=== PATIENT | male | born 1980 | race Caucasian/White ===

== ENCOUNTER → 2020-10-02 10:47 | Outpatient (BNVA) | payer SELFPAY | PROVIDERS: PCP Family Medicine; Visit Provider Emergency Medicine | DX: R05 Cough (principal); F17.200 Nicotine dependence, unspecified, uncomplicated; J40 Bronchitis, not specified as acute or chronic | CPT/HCPCS: 71046 ==

== ENCOUNTER → 2020-10-30 10:34 | Outpatient (BNVA) | payer SELFPAY | PROVIDERS: PCP Family Medicine; Visit Provider Emergency Medicine | DX: E16.2 Hypoglycemia, unspecified (principal); R53.83 Other fatigue | CPT/HCPCS: 80053; 80061; 83036; 84443; 85025 ==

== ENCOUNTER 2021-09-06 16:41 | Emergency (ER) | payer SELFPAY ==
[2021-09-06 17:44] VITALS: BP 128/87; PULSE 91; RESP 18; TEMP 36.9; O2SAT 99; BMI 35.4
--- NOTE | 2021-09-06 18:54 | W.ED.ALLEREA ---
Documented by User: JOSH Alonso 09/06/21 19:20 HPI - Allergic Reaction General: Chief complaint: Allergic Reaction Stated complaint: skin itching x 2 weeks; n/v/d Time Seen by Provider: 09/06/21 18:54 History of Present Illness: HPI narrative: 41-year-old male comes in today with complaints of generalized itching. Patient reports itching has been going on for about 1 week. Patient reports no new changes in detergent, or significant rash. Patient does work in the [employer] and has a lot of sawdust on them at times. Patient appears well. Patient appears no acute distress. Review of Systems Skin/Breast: Reports: pruritus PFSH ED PFSH: Medical History Hypoglycemia Smoking addiction Social History (Updated 10/30/20 @ 10:09 by Aaron Fournier LPN) Smoking and tobacco status: current every day smoker cigarettes Packs smoked per day: 1 Quit status (tobacco): not considering quitting Second hand smoke exposure: Yes Alcohol intake: current Alcohol intake frequency: holidays/special occasions only Desire information about alcohol rehabilitation?: No Physical Exam Const: COMMON NORMALS: alert Resp: COMMON NORMALS: normal respiratory effort Cardio: COMMON NORMALS: regular rate and regular rhythm RATE: regular rate RHYTHM: regular rhythm Extremity: COMMON NORMALS: normal to inspection Neuro: SENSORIUM/ORIENTATION: Yes alert Psych: COMMON NORMALS: cooperative Skin: COMMON NORMALS: no rashes or lesions noted GENERAL SKIN EXAM: no rashes or lesions noted Course Vital Signs: Vital signs: Vital Signs Temperature 98.5 F 09/06/21 17:44 Pulse Rate 96 09/06/21 19:19 Respiratory Rate 16 09/06/21 19:19 Blood Pressure 136/88 09/06/21 19:19 Pulse Oximetry 98 09/06/21 19:19 MDM - Allergic Reaction Medical Decision Making 41-year-old male comes in today with complaints of generalized itching causing difficulty for him to sleep. 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 On exam we note no specific rash. Patient does have some abrasions to the forearm where he has been scratching. Respirations are even lungs are clear to auscultation. Vital signs are normal. Differential diagnosis includes contact dermatitis, neurodermatitis, Chen itch. I believe patient probably is just suffering from some chen itch. He does not usually work in the cold and is outside often. Patient skin does appear to be dry there is no specific rashes noted though. We will give him a burst of steroids to see if that would help and cover for any secondary dermatitis. Patient was recommended to take cetirizine twice a day and use a good emollient lotion. Patient was written for some hydroxyzine for breakthrough itching and Lac-Hydrin for further comfort. Discharge Plan Discharge Patient Disposition: Home Clinical Impression: Winter itch Condition: Stable Prescriptions: New prednisone 20 mg tablet 20 mg PO BID 5 Days Qty: 10 0RF cetirizine 10 mg tablet 10 mg PO BID Qty: 20 0RF Lac-Hydrin Five 5 % lotion 1 applic topical BID Qty: 226 0RF hydroxyzine HCl 25 mg tablet 25 mg PO Q4H PRN (Reason: itching) Qty: 20 0RF Discharge Orders: Discharge ED (Routine); Ordered 09/06/21 Ordered By: Maksim Mai Referrals: Chelsea Ruano DO [Primary Care Provider] - Discharge Diet: Usual diet Discharge Activity: Increase activity as tolerated Patient Instructions: Itchy Skin (ED) Activity Restrictions/Additional Instructions: Medications as directed. I suspect this is probably most likely a winter itch sometimes the cold weather will bring on dry patchy skin that will be itchy. Sometimes Benadryl would be helpful with the itch. Other treatment is avoiding hot water baths, and using a good emollient lotion. I have prescribed you a dose of steroid to cover for any secondary dermatitis from exposure to sawdust or plant material. Drink plenty of water with medication and follow-up with primary care otherwise as needed. Coding Level of Care Code ED Blister Packing Machine Tender for Chg Fwd Exam Detailed Medical Decision Making Low Complexity Time Spent (min) 20 Documented by User: Rafael Martinez DO 09/06/21 19:41 HPI - Allergic Reaction General: Chief complaint: Allergic Reaction Stated complaint: skin itching x 2 weeks; n/v/d Time Seen by Provider: 09/06/21 18:54 [facility] ED [facility]: Medical History Hypoglycemia Smoking addiction Social History (Updated 10/30/20 @ 10:09 by Aaron Fournier LPN) Smoking and tobacco status: current every day smoker cigarettes Packs smoked per day: 1 Quit status (tobacco): not considering quitting Second hand smoke exposure: Yes Alcohol intake: current Alcohol intake frequency: holidays/special occasions only Desire information about alcohol rehabilitation?: No Course Vital Signs: Vital signs: Vital Signs Temperature 98.5 F 09/06/21 17:44 Pulse Rate 96 09/06/21 19:19 Respiratory Rate 16 09/06/21 19:19 Blood Pressure 136/88 09/06/21 19:19 Pulse Oximetry 98 09/06/21 19:19 MDM - Allergic Reaction Medical Decision Making 41-year-old male comes in today with complaints of generalized itching causing difficulty for him to sleep. 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 On exam we note no specific rash. Patient does have some abrasions to the forearm where he has been scratching. Respirations are even lungs are clear to auscultation. Vital signs are normal. Differential diagnosis includes contact dermatitis, neurodermatitis, Chen itch. I believe patient probably is just suffering from some chen itch. He does not usually work in the cold and is outside often. Patient skin does appear to be dry there is no specific rashes noted though. We will give him a burst of steroids to see if that would help and cover for any secondary dermatitis. Patient was recommended to take cetirizine twice a day and use a good emollient lotion. Patient was written for some hydroxyzine for breakthrough itching and Lac-Hydrin for further comfort. This patient was originally seen by JOSH Ritchie.? I agree with his history, evaluation, and treatment. Discharge Plan Discharge Patient Disposition: Home Clinical Impression: Winter itch Condition: Stable Prescriptions: New prednisone 20 mg tablet 20 mg PO BID 5 Days Qty: 10 0RF cetirizine 10 mg tablet 10 mg PO BID Qty: 20 0RF Lac-Hydrin Five 5 % lotion 1 applic topical BID Qty: 226 0RF hydroxyzine HCl 25 mg tablet 25 mg PO Q4H PRN (Reason: itching) Qty: 20 0RF Discharge Orders: Discharge ED (Routine); Ordered 09/06/21 Ordered By: Maksim Mai Referrals: Chelsea Ruano DO [Primary Care Provider] - Discharge Diet: Usual diet Discharge Activity: Increase activity as tolerated Patient Instructions: Itchy Skin (ED) Activity Restrictions/Additional Instructions: Medications as directed. I suspect this is probably most likely a winter itch sometimes the cold weather will bring on dry patchy skin that will be itchy. Sometimes Benadryl would be helpful with the itch. Other treatment is avoiding hot water baths, and using a good emollient lotion. I have prescribed you a dose of steroid to cover for any secondary dermatitis from exposure to sawdust or plant material. Drink plenty of water with medication and follow-up with primary care otherwise as needed. Coding Level of Care Code ED Blister Packing Machine Tender for Hodan Fwd Exam Detailed Medical Decision Making Low Complexity Time Spent (min) 20
[2021-09-06] MEDS: LORazepam 1 mg Tablet PO (19:08)
[2021-09-06] MEDS: dexamethasone 10 mg/mL INJ IM (19:08)
[2021-09-06 19:19] VITALS: BP 136/88; PULSE 96; RESP 16; O2SAT 98
== END 2021-09-06 19:21 | disposition home or self-care (01) ==
PROVIDERS: Emergency Provider Nurse Practitioner Family; PCP Family Medicine
DX: L29.8 Other pruritus (principal); F17.210 Nicotine dependence, cigarettes, uncomplicated
CPT/HCPCS: 96372; 99283; J1100

== ENCOUNTER 2021-10-04 15:00 | Emergency (ER) | payer SELFPAY ==
[2021-10-04 15:00] VITALS: PULSE 83; RESP 24; O2SAT 94
[2021-10-04 15:08] VITALS: BP 134/90; PULSE 88; RESP 18; TEMP 36.6; O2SAT 97; BMI 34.0
--- NOTE | 2021-10-04 15:16 | ECG_ITS ---
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 Measurements Intervals [place] Rate: 84 P: 57 CO: 131 QRS: 82 QRSD: 102 T: 46 QT: 354 QTc: 419 Interpretive Statements SINUS RHYTHM No previous ECG available for comparison Electronically Signed On 10-05-2021 12:09:20 HYDRAULIC OPERATOR by Nahed Thompson M.D. [id number]
--- NOTE | 2021-10-04 15:16 | XRR_ITS ---
PROCEDURE INFORMATION: Exam: XR Chest Exam date and time: 10/04/2021 3:16 PM Age: 41 years old Clinical indication: Pain; Chest pressure; Additional info: Chest pain TECHNIQUE: Imaging protocol: XR of the chest. Views: 1 view. COMPARISON: CR XR chest 2V* [id number] 10/02/2020 10:59 AM FINDINGS: Lungs: Minimal streaky opacity is present at the left lung base. Pleural spaces: Unremarkable. No pleural effusion. No pneumothorax. Heart/Mediastinum: Unremarkable. No cardiomegaly. Bones/joints: Unremarkable. XR/XR chest 1V portable [id number] IMPRESSION: There is minimal nonspecific streaky opacity at the left lung base. Differential includes atelectasis, scar tissue, and or pneumonia.
--- NOTE | 2021-10-04 15:38 | ED_ITS ---
Documented by User: Alberto Pham DO 10/06/21 07:38 HPI - Chest Pain General: Chief Complaint: Chest Pain Stated Complaint: Chest Pains Time Seen by Provider: 10/04/21 15:16 Source: patient Mode of arrival: ambulatory Limitations: no limitations History of Present Illness: 41-year-old male presents emergency room with complaints of chest pain. Is a chest pain left-sided chest for last 2 days. Pain today was radiating to the left arm but prior to today has not been. No vomiting no diarrhea no shortness of breath. No orthopnea no abdominal pain. No dysuria urgency or frequency no GI symptoms. No previous cardiac screening. His father had a MO prior to 60. Symptoms began at rest is not anything that exacerbates or relieves MD complaint: chest pain Onset (ago): hour(s) Timing of current episode: episodic Onset: during rest Pain location: left chest Pain radiation: left arm Severity: moderate Quality: tightness and aching Relieving factors: nothing Exacerbating factors: nothing Associated symptoms: Deny abdominal pain, diaphoresis, dyspnea, fever(s), leg edema, nausea, palpitations, sense of impending doom, syncope or vomiting Risk Factors: Coronary artery disease risk factors: none Thoracic aortic dissection risk factors: none Review of Systems Const: Denies: fever(s) or diaphoresis ENMT: Denies: throat pain, ear or mastoid pain, nasal discharge or nasal congestion Card: Denies: palpitations or syncope Resp: Denies: dyspnea GI: Denies: abdominal pain, nausea or vomiting : Denies: flank pain, dysuria, urinary frequency or urinary urgency Skin/Breast: Denies: rash or pruritus [facility] ED PFSH: Medical History Hypoglycemia Smoking addiction Social History Smoking and tobacco status: current every day smoker cigarettes Packs smoked per day: 1 Quit status (tobacco): not considering quitting Second hand smoke exposure: Yes Alcohol intake: current Alcohol intake frequency: holidays/special occasions only Desire information about alcohol rehabilitation?: No Physical Exam Const: GENERAL APPEARANCE: cooperative and comfortable ORIENTATION/CONSCIOUSNESS: Yes awake, Yes oriented to person, Yes oriented to place and Yes oriented to time HENMT: COMMON NORMALS: normocephalic, atraumatic and hearing grossly normal bilaterally HEAD & SCALP: normocephalic and atraumatic Neck/C-Spine: COMMON NORMALS: no JVD Resp: COMMON NORMALS: normal respiratory effort, No retractions, No use of accessory muscles and clear to auscultation bilaterally AUSCULTATION: clear to auscultation bilaterally Cardio: COMMON NORMALS: no JVD, regular rate, regular rhythm and No murmurs present (Cardio) RATE: regular rate RHYTHM: regular rhythm GI: COMMON NORMALS: Soft to palpation and No hepatosplenomegaly present AUSCULTATION: Yes normoactive bowel sounds PALPATION: Yes Soft to palpation, No Tenderness to palpation present (GI), No Guarding due to palpation present (GI) and Yes No hepatosplenomegaly present Extremity: COMMON NORMALS: normal to inspection, capillary refill normal, no clubbing, cyanosis or edema, no calf tenderness and no pedal edema Neuro: SENSORIUM/ORIENTATION: Yes oriented to person, Yes oriented to place and Yes oriented to time Skin: COMMON NORMALS: no rashes or lesions noted GENERAL SKIN EXAM: no rashes or lesions noted Course Vital Signs: Vital signs: Vital Signs Temperature 97.8 F 10/04/21 15:08 Pulse Rate 74 10/04/21 18:00 Respiratory Rate 20 H 10/04/21 18:00 Blood Pressure 134/90 10/04/21 15:08 Pulse Oximetry 96 10/04/21 18:00 MDM - Chest Pain Medical Decision Making Care signed out to Dr. Martinez at change of shift. See final notes for diagnosis and disposition. 41-year-old male checked out to me by Dr. Pham at shift change. This pa tient had chest discomfort. CBC is normal. BMP is normal. EKG did not reveal any ST changes. First troponin was normal. Second troponin was normal, and I was in the process of discharging the patient, when he decided he did not want to wait anymore, and ended up signing an AMA form to leave AGAINST MEDICAL ADVICE. Lab Data : 10/04/21 16:01 10/04/21 16:01 Radiology Impressions Chest X-Ray 10/04/21 15:16 IMPRESSION: There is minimal nonspecific streaky opacity at the left lung base. Differential includes atelectasis, scar tissue, and or pneumonia. Laboratory Results WBC 7.2 10^3/uL (4.0-10.0) 10/04/21 16: RBC 4.84 10^6/uL (4.1-5.3) 10/04/21 16: Hgb 15.0 g/dL (11.7-16.6) 10/04/21 16: Hct 44.3 % (42.0-52.0) 10/04/21 16: MCV 91.5 fl (80-94) 10/04/21 16: MCH 31.0 pg (28.0-34.0) 10/04/21 16: MCHC 33.9 g/dL (30.0-36.0) 10/04/21 16: RDW 13.0 % (12.1-15.1) 10/04/21 16: Plt Count 267 10^3/cmm (130-400) 10/04/21 16: MPV 10.7 fL (7.4-10.4) H 10/04/21 16: Neut % (Auto) 55.9 % 10/04/21 16: Lymph % (Auto) 31.1 % 10/04/21 16: [place] % (Auto) 8.3 % 10/04/21 16: Eos % (Auto) 3.3 % 10/04/21 16: Baso % (Auto) 0.6 % 10/04/21 16: Neut # (Auto) 4.03 10^3/uL (1.8-7.7) 10/04/21 16: Lymph # (Auto) 2.2 10^3/uL (0.8-4.8) 10/04/21 16: [place] # (Auto) 0.6 10^3/uL (0.2-0.9) 10/04/21 16: Eos # (Auto) 0.2 10^3/uL (0.0-0.8) 10/04/21 16: Baso # (Auto) 0.0 10^3/uL (0.0-0.1) 10/04/21 16: Nucleated RBC % (auto) 0 % 10/04/21 16: Nucleated RBCs # 0.0 /100WBC 10/04/21 16: Sodium 140 mmol/L (136-145) 10/04/21 16:01 Potassium 3.8 mmol/L (3.5-5.1) 10/04/21 16: Chloride 103 mmol/L (98-107) 10/04/21 16:01 Carbon Dioxide 25 mmol/L (22-29) 10/04/21 16:01 Anion Gap 15.8 (5-19) 10/04/21 16: BUN 12 mg/dL (6-20) 10/04/21 16: Creatinine 0.8 mg/dL (0.7-1.2) 10/04/21 16: GFR Calculation 106.0 mL/min (90-130) 10/04/21 16: Glucose 120 mg/dL (65-115) H 10/04/21 16: Calculated Osmolality 291 mOsm/kg (285-295) 10/04/21 16: Calcium 9.9 mg/dL (8.5-10.5) 10/04/21 16: Total Bilirubin 0.5 mg/dL (0.15-1.2) 10/04/21 16: AST 32 U/L (0-40) 10/04/21 16:01 ALT 70 U/L (0-41) H 10/04/21 16:01 Alkaline Phosphatase 174 IU/L (40-130) H 10/04/21 16:01 Creatine Kinase 68 U/L (39-308) 10/04/21 16:01 Troponin T Baseline 6 ng/L (0-15) 10/04/21 16: Troponin T 120 Minute 6.00 ng/L (0-15) 10/04/21 17:59 Delta Troponin T Not Reportable 10/04/21 17:59 Total Protein 7.2 g/dL (6.6-8.7) 10/04/21 16: Albumin 4.4 g/dL (3.5-5.2) 10/04/21 16: Globulin 2.8 g/dL (1.3-4.6) 10/04/21 16:01 Urine Color Yellow (Yellow) 10/04/21 16:01 Urine Appearance Clear (CLEAR) 10/04/21 16: Urine pH 5 (5-7) 10/04/21 16:01 Ur Specific [place] 1.010 (1.005-1.030) 10/04/21 16:01 Urine Protein Neg (Negative) 10/04/21 16:01 Urine Glucose (UA) Norm (Normal) 10/04/21 16:01 Urine Ketones Negative (Negative) 10/04/21 16:01 Urine Blood Neg (Negative) 10/04/21 16:01 Urine Nitrate Negative (Negative) 10/04/21 16:01 Urine Bilirubin Neg (Negative) 10/04/21 16:01 Urine Urobilinogen Norm mg/dL (Negative) 10/04/21 16:01 Ur Leukocyte Esterase Negative (Negative) 10/04/21 16:01 Discharge Plan Discharge Patient Disposition: Left Against Medical Advice Clinical Impression: Chest pain Condition: Stable Prescriptions: No Action No Known Home Medications 0RF Discharge Orders: Discharge ED (Routine); Ordered 10/04/21 Ordered By: Rafael Martinez Referrals: Chelsea Ruano DO [Primary Care Provider] - 4-7 days Discharge Diet: Advance as tolerated Discharge Activity: Increase activity as tolerated Patient Instructions: Chest Pain (ED) Activity Restrictions/Additional Instructions: A definite cause of your chest pain was not found in the emergency room today. What we do know is that the pain is not coming from your heart. Coding Level of Care Code ED Change Management Coordinator for Chg Fwd Exam Comprehensive Documented by User: Rafael Martinez DO 10/04/21 23:24 HPI - Chest Pain General: Chief Complaint: Chest Pain Stated Complaint: Chest Pains Time Seen by Provider: 10/04/21 15:16 PFSH ED PFSH: Medical History Hypoglycemia Smoking addiction Social History Smoking and tobacco status: current every day smoker cigarettes Packs smoked per day: 1 Quit status (tobacco): not considering quitting Second hand smoke exposure: Yes Alcohol intake: current Alcohol intake frequency: holidays/special occasions only Desire information about alcohol rehabilitation?: No Course Vital Signs: Vital signs: Vital Signs Temperature 97.8 F 10/04/21 15:08 Pulse Rate 74 10/04/21 18:00 Respiratory Rate 20 H 10/04/21 18:00 Blood Pressure 134/90 10/04/21 15:08 Pulse Oximetry 96 10/04/21 18:00 MDM - Chest Pain Medical Decision Making 41-year-old male checked out to me by Dr. Pham at shift change. This patient had chest discomfort. CBC is normal. BMP is normal. EKG did not reveal any ST changes. First troponin was normal. Second troponin was normal, and I was in the process of discharging the patient, when he decided he did not want to wait anymore, and ended up signing an AMA form to leave AGAINST MEDICAL ADVICE. Lab Data : 10/04/21 16:01 10/04/21 16:01 Radiology Impressions Chest X-Ray 10/04/21 15:16 IMPRESSION: There is minimal nonspecific streaky opacity at the left lung base. Differential includes atelectasis, scar tissue, and or pneumonia. Laboratory Results WBC 7.2 10^3/uL (4.0-10.0) 10/04/21 16:01 RBC 4.84 10^6/uL (4.1-5.3) 10/04/21 16:01 Hgb 15.0 g/dL (11.7-16.6) 10/04/21 16:01 Hct 44.3 % (42.0-52.0) 10/04/21 16:01 MCV 91.5 fl (80-94) 10/04/21 16:01 MCH 31.0 pg (28.0-34.0) 10/04/21 16:01 MCHC 33.9 g/dL (30.0-36.0) 10/04/21 16:01 RDW 13.0 % (12.1-15.1) 10/04/21 16:01 Plt Count 267 10^3/cmm (130-400) 10/04/21 16:01 MPV 10.7 fL (7.4-10.4) H 10/04/21 16:01 Neut % (Auto) 55.9 % 10/04/21 16:01 Lymph % (Auto) 31.1 % 10/04/21 16:01 [place] % (Auto) 8.3 % 10/04/21 16:01 Eos % (Auto) 3.3 % 10/04/21 16:01 Baso % (Auto) 0.6 % 10/04/21 16: Neut # (Auto) 4.03 10^3/uL (1.8-7.7) 10/04/21 16:01 Lymph # (Auto) 2.2 10^3/uL (0.8-4.8) 10/04/21 16:01 [place] # (Auto) 0.6 10^3/uL (0.2-0.9) 10/04/21 16:01 Eos # (Auto) 0.2 10^3/uL (0.0-0.8) 10/04/21 16: Baso # (Auto) 0.0 10^3/uL (0.0-0.1) 10/04/21 16:01 Nucleated RBC % (auto) 0 % 10/04/21 16: Nucleated RBCs # 0.0 /100WBC 10/04/21 16: Sodium 140 mmol/L (136-145) 10/04/21 16: Potassium 3.8 mmol/L (3.5-5.1) 10/04/21 16: Chloride 103 mmol/L (98-107) 10/04/21 16: Carbon Dioxide 25 mmol/L (22-29) 10/04/21 16: Anion Gap 15.8 (5-19) 10/04/21 16: BUN 12 mg/dL (6-20) 10/04/21 16: Creatinine 0.8 mg/dL (0.7-1.2) 10/04/21 16: GFR Calculation 106.0 mL/min (90-130) 10/04/21 16: Glucose 120 mg/dL (65-115) H 10/04/21 16: Calculated Osmolality 291 mOsm/kg (285-295) 10/04/21 16: Calcium 9.9 mg/dL (8.5-10.5) 10/04/21 16:01 Total Bilirubin 0.5 mg/dL (0.15-1.2) 10/04/21 16: AST 32 U/L (0-40) 10/04/21 16:01 ALT 70 U/L (0-41) H 10/04/21 16:01 Alkaline Phosphatase 174 IU/L (40-130) H 10/04/21 16:01 Creatine Kinase 68 U/L (39-308) 10/04/21 16:01 Troponin T Baseline 6 ng/L (0-15) 10/04/21 16:01 Troponin T 120 Minute 6.00 ng/L (0-15) 10/04/21 17:59 Delta Troponin T Not Reportable 10/04/21 17:59 Total Protein 7.2 g/dL (6.6-8.7) 10/04/21 16:01 Albumin 4.4 g/dL (3.5-5.2) 10/04/21 16:01 Globulin 2.8 g/dL (1.3-4.6) 10/04/21 16:01 Urine Color Yellow (Yellow) 10/04/21 16:01 Urine Appearance Clear (CLEAR) 10/04/21 16:01 Urine pH 5 (5-7) 10/04/21 16:01 Ur Specific [place] 1.010 (1.005-1.030) 10/04/21 16:01 Urine Protein Neg (Negative) 10/04/21 16:01 Urine Glucose (UA) Norm (Normal) 10/04/21 16:01 Urine Ketones Negative (Negative) 10/04/21 16:01 Urine Blood Neg (Negative) 10/04/21 16:01 Urine Nitrate Negative (Negative) 10/04/21 16:01 Urine Bilirubin Neg (Negative) 10/04/21 16:01 Urine Urobilinogen Norm mg/dL (Negative) 10/04/21 16:01 Ur Leukocyte Esterase Negative (Negative) 10/04/21 16:01 Discharge Plan Discharge Patient Disposition: Left Against Medical Advice Clinical Impression: Chest pain Condition: Stable Prescriptions: No Action No Known Home Medications 0RF Discharge Orders: Discharge ED (Routine); Ordered 10/04/21 Ordered By: Rafael Martinez Referrals: Chelsea Ruano DO [Primary Care Provider] - 4-7 days Discharge Diet: Advance as tolerated Discharge Activity: Increase activity as tolerated Patient Instructions: Chest Pain (ED) Activity Restrictions/Additional Instructions: A definite cause of your chest pain was not found in the emergency room today. What we do know is that the pain is not coming from your heart. Coding Level of Care Code ED Change Management Coordinator for Chg Fwd Exam Comprehensive
--- NOTE | 2021-10-04 15:57 | PC.NURSE ---
PT PLACED ON CONTINUOUS SPO2, NIBP, AND CM.
[2021-10-04 16:00] VITALS: PULSE 81; RESP 25; O2SAT 94
[2021-10-04] MEDS: ondansetron 2 mg/ML SDV 2 mL 4 MG IVP (16:00)
[2021-10-04 16:09] LABS: Add Urine Microscopic? NO; Charge for UA Resulting for Rev
[2021-10-04 16:14] LABS: Basophils % 0.6 %; Eosinophils # 0.2 10^3/uL (0.0-0.8); Eosinophils % 3.3 %; Hematocrit 44.3 % (42.0-52.0); Lymphocytes # 2.2 10^3/uL (0.8-4.8); Lymphocytes % 31.1 %; Mean Corpuscular HGB Conc 33.9 g/dL (30.0-36.0); Mean Corpuscular Volume 91.5 fl (80-94); Mean Platelet Volume 10.7 fL (7.4-10.4); Monocytes # 0.6 10^3/uL (0.2-0.9); Monocytes % 8.3 %; Neutrophils # 4.03 10^3/uL (1.8-7.7); Neutrophils % 55.9 %; Nucleated Red Blood Cells % 0 %; Platelet Count 267 10^3/cmm (130-400); Red Blood Count 4.84 10^6/uL (4.1-5.3); White Blood Count 7.2 10^3/uL (4.0-10.0)
[2021-10-04 16:25] LABS: Bilirubin Urine Neg (Negative); Blood Urine Neg (Negative); Glucose Urine UA Norm (Normal); Ketones Urine Negative (Negative); Leukocyte Esterase Urine Negative (Negative); Nitrate Urine Negative (Negative); Protein Urine Neg (Negative); Urine Appearance Clear (CLEAR); Urine Color Yellow (Yellow); Urobilinogen Urine Norm (Negative); pH Urine 5 (5-7)
[2021-10-04 16:33] LABS: Alanine Aminotransferase 70 U/L (0-41); Albumin Level 4.4 g/dL (3.5-5.2); Alkaline Phosphatase 174 IU/L (40-130); Anion Gap 15.8 (5-19); Aspartate Amino Transferase 32 U/L (0-40); Blood Urea Nitrogen 12 mg/dL (6-20); Calcium 9.9 mg/dL (8.5-10.5); Carbon Dioxide 25 mmol/L (22-29); Chloride 103 mmol/L (98-107); Creatine Phosphokinase 68 U/L (39-308); Globulin 2.8 g/dL (1.3-4.6); Glucose 120 mg/dL (65-115); Osmolality Calculated 291 mOsm/kg (285-295); Potassium 3.8 mmol/L (3.5-5.1); Sodium 140 mmol/L (136-145); Total Bilirubin 0.5 mg/dL (0.15-1.2); Total Protein 7.2 g/dL (6.6-8.7)
[2021-10-04 16:35] LABS: Troponin(5th) Baseline 6 ng/L (0-15)
[2021-10-04 17:00] VITALS: PULSE 73; O2SAT 96
--- NOTE | 2021-10-04 17:16 | ECG_ITS ---
[facility] Test Date: 2021-10-04 Pat Name: Eduin Schmitz Department: Room: Gender: Male Pewter Caster: : 1980 Requested By: Alberto Silva Order Number: [id number] Kalani MD: Nahed Thompson M.D. Measurements Intervals [place] Rate: 74 P: 47 AR: 132 QRS: 79 QRSD: 101 T: 50 QT: 375 QTc: 419 Interpretive Statements SINUS RHYTHM Compared to ECG 10/04/2021 15:28:15 No significant changes Electronically Signed On 10-05-2021 12:19:36 HEAD PASTRY CHEF by Nahed Thompson M.D. [id number]
[2021-10-04 18:00] VITALS: PULSE 74; RESP 20; O2SAT 96
--- NOTE | 2021-10-04 18:50 | PC.NURSE ---
WHILE AT BEDSIDE ASKED PT IF I COULD HELP HIM HE STATED, I'M LEAVING THIS PLACE IS FUCKING USELESS DENISA . REMOVED IV PT SIGNED AMA PAPERWORK. UPON LEAVING PT IS IN NAD.
== END 2021-10-04 18:59 | disposition left against medical advice (07) ==
PROVIDERS: Family Medicine; Emergency Provider Emergency Medicine; PCP Family Medicine
DX: R07.9 Chest pain, unspecified (principal); Z53.21 Procedure and treatment not carried out due to patient leaving prior to being seen by health care provider; F17.210 Nicotine dependence, cigarettes, uncomplicated
CPT/HCPCS: 71045; 80053; 81003; 82550; 84484; 85025; 93005; 96374; 99284; J2405

== ENCOUNTER 2021-10-13 14:10 | Emergency (ER) | payer SELFPAY ==
[2021-10-13 14:19] VITALS: BP 123/78; PULSE 89; RESP 18; TEMP 36.8; O2SAT 97; BMI 35.4
[2021-10-13 14:25] VITALS: BP 123/78; PULSE 89; RESP 16; TEMP 36.8; O2SAT 97
--- NOTE | 2021-10-13 14:35 | XR_ITS ---
WS: [id number] Left knee, 3 views, 10/13/2021 Clinical Data: injury/pain Comparison: None. Findings: No fractures or dislocations are seen. The joint spaces are normal. The patella is intact. The soft t issues are unremarkable. There is an intramedullary parveen in the proximal right tibia fixed withm a transverse orthopedic screw. 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 Kellgren-George Classification: grade 0 (none): definite absence of x-ray abimbola nges of osteoarthritis
--- NOTE | 2021-10-13 14:35 | W.ED.EXTPRO ---
HPI - Extremity Problem General: Chief complaint: Extremity Injury, Lower Stated complaint: L leg injury Time Seen by Provider: 10/13/21 14:23 PFSH ED PFSH: Medical History Hypoglycemia Smoking addiction Social History Smoking and tobacco status: current every day smoker cigarettes Packs smoked per day: 1 Quit status (tobacco): not considering quitting Second hand smoke exposure: Yes Alcohol intake: current Alcohol intake frequency: holidays/special occasions only Desire information about alcohol rehabilitation?: No Course Vital Signs: Vital signs: Vital Signs Temperature 98.2 F 10/13/21 14:25 Pulse Rate 89 10/13/21 14:25 Respiratory Rate 16 10/13/21 14:25 Blood Pressure 123/78 10/13/21 14:25 Pulse Oximetry 97 10/13/21 14:25 Discharge Plan Discharge Condition: Stable Prescriptions: No Action No Known Home Medications 0RF Coding Level of Care Code ED Rotary Filter Operator for Hodan Oliveira
--- NOTE | 2021-10-13 14:36 | W.ED.LOWEXIN ---
HPI - Extremity Injury (Lower) General: Chief Complaint: Extremity Injury, Lower Stated Complaint: L leg injury Time Seen by Provider: 10/13/21 14:23 Source: patient Mode of arrival: wheelchair Limitations: no limitations History of Present Illness: Patient is a 41-year-old male who presents to ED today for evaluation of left knee injury. Patient states prior to arrival while at work a large tree/log kicked back and struck his left knee. Patient maintains minimal weight bearing. No other injuries or complaints at this time. This is not a workers comp injury. complaint: knee injury Onset (ago): hour(s) Injury: Left: knee Place: home and work Severity: moderate Relieving factors: immobilization Exacerbating factors: weight bearing, movement and palpation Context: direct blow Associated symptoms: Reports no associated symptoms Other symptoms: none Review of Systems Musc: Reports: joint pain (L knee); Denies: neck pain, back pain, extremity pain, extremity swelling, joint swelling, joint redness or joint warmth Neuro: Denies: numbness in extremities, weakness in extremities or sensory changes [facility] ED PFSH: Medical History Hypoglycemia Smoking addiction Social History Smoking and tobacco status: current every day smoker cigarettes Packs smoked per day: 1 Quit status (tobacco): not considering quitting Second hand smoke exposure: Yes Alcohol intake: current Alcohol intake frequency: holidays/special occasions only Desire information about alcohol rehabilitation?: No Physical Exam Const: COMMON NORMALS: no acute distress, average body habitus, patient oriented x3, no limitations, healthy appearing, alert and well nourished Extremity: GENERAL: Yes normal exam except as noted LEFT LOWER EXTREMITY: Yes knee joint (abrasions to medial and lateral aspects; no swelling or deformity) Left knee: Yes ROM (full extension; slightly decreased flexion) and Yes neurovascular exam (normal) Neuro: COMMON NORMALS: patient oriented x3, moves all extremities, no focal motor deficits and no sensory deficits noted SENSORIUM/ORIENTATION: Yes alert Course Vital Signs: Vital signs: Vital Signs Temperature 98.2 F 10/13/21 14:25 Pulse Rate 89 10/13/21 14:25 Respiratory Rate 16 10/13/21 14:25 Blood Pressure 123/78 10/13/21 14:25 Pulse Oximetry 97 10/13/21 14:25 MDM - Extremity Injury (Lower) Medical Decision Making XR negative. Discussed conservative therapy at home, weightbearing as tolerated (will give crutches), RICE therapy, follow-up with PCP in 5 to 7 days if pain is not improving. Imaging Data XR L knee: My impression: NAD Discharge Plan Discharge Patient Disposition: Home Clinical Impression: Contusion of knee, left Qualifiers: Encounter type: initial encounter Qualified Code(s): S80.02XA - Contusion of left knee, initial encounter Condition: Stable Prescriptions: No Action No Known Home Medications 0RF Discharge Orders: Discharge ED (Routine); Ordered 10/13/21 Ordered By: Gypsy Goff Patient Instructions: RICE Therapy Coding Level of Care Code ED Baffle Mounter for [place] Fwd Exam Expanded Problem Focused
== END 2021-10-13 15:26 | disposition home or self-care (01) ==
PROVIDERS: Emergency Provider Physician Assistant
DX: S80.02XA Contusion of left knee, initial encounter (principal); F17.210 Nicotine dependence, cigarettes, uncomplicated; W20.8XXA Other cause of strike by thrown, projected or falling object, initial encounter; Y99.0 Civilian activity done for income or pay
CPT/HCPCS: 73562; 99283; E0114